=== PATIENT | female | born 1950 | race Two or more races ===

== ENCOUNTER → 2024-08-05 | Outpatient (CLI) | payer MEDICARE, MEDICAID, SELFPAY ==
--- NOTE | 2024-08-05 14:20 | XR_ITS ---
Examination: Bone densitometry Date and time of exam:August 05, 2024 1429 hours INDICATIONS: Menopause age 45, personal history osteopenia Technique: Lumbar spine and hip total bone mineralization values of an calculated. Peak reference and age match control results have been displayed. Findings: Lumbar spine total bone mineralization is0.889 gm/cm2. This is 1.4 standard deviations below peak reference. This is 0.9 standard deviations above age-matched controls. Hip total bone mineralization is 0.916 gm/cm2 This is 0.2 standard deviations below peak reference. This is 1.5 standard deviations above age-matched controls Impression: There is osteopenia based on lumbar spine measurements. There is normal mineralization based on hip measurements Lumbar mineralization is decreased 4.8% compared with March 07, 2015 Hip mineralization is decreased 3.4% compared with March 07, 2015
== END | disposition home or self-care (01) ==
PROVIDERS: Referring Provider Internal Medicine Pulmonary Disease; Visit Provider Internal Medicine Pulmonary Disease
DX: M85.80 Other specified disorders of bone density and structure, unspecified site (principal)
CPT/HCPCS: 77080

== ENCOUNTER → 2024-09-08 | Outpatient (CLI) | payer MEDICARE, MEDICAID, SELFPAY ==
--- NOTE | 2024-09-08 14:00 | XR_ITS ---
Examination: CT chest, without intravenous contrast. Sagittal and coronal 2-D reconstructions. Exam date and time: September 08, 2024 at 1442 hours Comparison March 10, 2020 INDICATIONS: Chronic coughing beginning 3 months ago CTDI:vol (mGy) 12 DLP: (mGycm) 378 Technique: Multiple 3.0 mm axial sections of the chest to been obtained. Bone and lung density settings are obtained. Sagittal and coronal 2-D reconstructions have been obtained. Low dose protocols were performed. One or more of the following dose reduction techniques were used; automated exposure control, adjustment of the mA and/or KV according to patient size, use of iterative reconstruction technique. Findings: Thoracic aortic calcification no aneurysmal dilatation Pulmonary artery segments are not enlarged Significant calcification left main left anterior descending coronary artery Mild enlargement cardiac contour 2 mm pulmonary nodule left upper lobe image 60 2 mm pulmonary nodule left lower lobe image 159 2 mm pulmonary nodule right upper lobe image 171 4 mm pulmonary nodule right upper lobe 2 mm pulmonary nodule right lower lobe, 2 mm pulmonary nodule left lower lobe image 188 2 mm pulmonary nodule left lower lobe image 204 No pneumonia or pulmonary edema Fatty infiltration throughout the liver Spleen not enlarged No pancreatic mass IMPRESSION: Multiple subcentimeter pulmonary nodules as above, with this study as baseline recommend 6 month follow-up CT chest without contrast No pneumonia or pulmonary edema
== END | disposition home or self-care (01) ==
PROVIDERS: Referring Provider Internal Medicine Pulmonary Disease; Visit Provider Internal Medicine Pulmonary Disease
DX: R05.3 Chronic cough (principal); R91.8 Other nonspecific abnormal finding of lung field
CPT/HCPCS: 71250

== ENCOUNTER → 2024-11-01 | Outpatient (CLI) | payer MEDICARE, MEDICAID, SELFPAY ==
--- NOTE | 2024-11-01 13:30 | XR_ITS ---
Examination: Breast ultrasound complete, bilateral Date and time of exam: November 01, 2024 1336 hours Comparison June 23, 2023 INDICATIONS: Right breast sonogram July 23, 2023 retroareolar oval mass 7 x 7 mm, suspicious mass Technique: Real-time grayscale ultrasonographic imaging bilateral breasts, including all 4 quadrants as well as nipple retroareolar and axillary regions. Findings: Sonographic images right breast 8:00 intramammary lymph node 10 x 6 mm Right axillary lymph node 15 x 13 mm Sonographic images left breast 3:00 intramammary lymph node 6 x 6 mm Axillary lymph node 15 by 8mm IMPRESSION: BI-RADS Category 2: Benign findings
--- NOTE | 2024-11-01 14:30 | XR_ITS ---
Examination: Diagnostic digital mammography, bilateral Computer aided detection 3-D breast Tomosynthesis, bilateral Date and time of exam: November 01, 2024 1407 hours Compared to mammograms dating to December 09, 2013 INDICATIONS: Spontaneous family history breast cancer, sister Technique: Nonmagnified MLO, CC views of the breasts to been obtained, reconstructed from 3-D Tomosynthesis images. R2 computer aided detection program utilized for evaluation of suspicious masses and/or abnormal calcifications. 3-D Tomosynthesis images obtained. Findings: Scattered areas of fibroglandular density Intramammary lymph nodes Benign calcifications No suspicious masses Impression: BI-RADS Category 2: Benign findings Recommend yearly follow-up mammography.
== END | disposition home or self-care (01) ==
LOC: CDIM 13:24
PROVIDERS: Referring Provider Specialist; Visit Provider Specialist
DX: R92.323 Mammographic fibroglandular density, bilateral breasts (principal); R92.1 Mammographic calcification found on diagnostic imaging of breast
CPT/HCPCS: 76641; 77062; 77066; G0279

== ENCOUNTER → 2024-12-06 | Outpatient (CLI) | payer MEDICARE, MEDICAID, SELFPAY ==
[2024-12-06 16:34] LABS: Creatinine (Component) 0.9 mg/dL (0.6-1.3); eGFR > 60 See Note
== END | disposition home or self-care (01) ==
PROVIDERS: PCP Internal Medicine Pulmonary Disease; Referring Provider Internal Medicine Pulmonary Disease; Visit Provider Internal Medicine Pulmonary Disease
DX: R10.9 Unspecified abdominal pain (principal)
CPT/HCPCS: 36415; 82565

== ENCOUNTER → 2025-07-13 | Outpatient (CLI) | payer MEDICARE, MEDICAID, SELFPAY ==
[2025-07-13 10:23] LABS: Basophils # (Auto) 0.0 Thou/mm3 (0.0-0.2); Basophils % (Auto) 0 % (0-2.5); Eosinophils # (Auto) 0.1 Thou/mm3 (0.0-0.5); Eosinophils % (Auto) 1 % (0-10); Hematocrit 34.0 % (36.0-46.0); Hemoglobin 10.6 g/dL (12.0-16.0); Immature Granulocytes Auto 0.03 Thou/mm3 (0.00-0.00); Lymphocytes # (Auto) 2.0 Thou/mm3 (1.0-4.8); Lymphocytes % (Auto) 34 % (10-50); Mean Corpuscular HGB Conc 31.2 g/dl (31.0-37.0); Mean Corpuscular Hemoglobin 24.0 pg (25.0-35.0); Mean Corpuscular Volume 77 fL (80-100); Monocytes # (Auto) 0.4 Thou/mm3 (0.0-0.8); Monocytes % (Auto) 7 % (0-12); Neutrophils # (Auto) 3.4 Thou/mm3 (1.8-7.7); Neutrophils % (Auto) 57 % (37-80); Nucleated Red Blood Cell # 0.00 Thou/mm3 (0.00-0.00); Nucleated Red Blood Cell % 0 /100 WBC (0); Platelet Count 246 Thou/mm3 (140-440); RDW Standard Deviation 41.1 fL (36.4-46.3); Red Blood Count 4.42 Miln/mm3 (4.00-5.20); White Blood Count 6.0 Thou/mm3 (3.6-11.0)
[2025-07-13 10:43] LABS: Glucose Estimated Average 100 mg/dL (80-131); Hemoglobin A1C 5.1 % Hgb (4.8-6.0)
[2025-07-13 12:21] LABS: Alanine Aminotransferase 18 U/L (10-49); Albumin, Serum 4.5 gm/dL (3.4-4.8); Albumin/Globulin Ratio 1.9 (1.2-2.2); Alkaline Phosphatase 52 U/L (46-116); Anion Gap 9 (7-16); Aspartate Amino Transferase 25 U/L (0-34); BUN/Creatinine Ratio 20 Ratio (12-20); Bilirubin,Total 0.5 mg/dL (0.3-1.2); Blood Urea Nitrogen 16 mg/dL (9-23); Calcium 9.4 mg/dL (8.3-10.6); Calcium (Corrected) 9.4 mg/dL (8.5-10.1); Carbon Dioxide 25.8 mMol/L (20.0-31.0); Cardiac Risk Estimate 2.5 RATIO (3.7-5.6); Chloride 110 mMol/L (98-107); Cholesterol 132 mg/dL (132-200); Creatinine (Component) 0.8 mg/dL (0.6-1.3); Globulin 2.4 gm/dL (2.3-3.5); Glucose 104 mg/dL (74-106); HDL Cholesterol 52 mg/dL (40-60); LDL Cholesterol,Calculated 64 mg/dL (0-130); Osmolality,Calculated 289 (275-295); Potassium 4.3 mMol/L (3.4-5.1); Sodium 145 mMol/L (136-145); Total Protein 6.9 gm/dL (5.7-8.2); Triglycerides 80 mg/dL (30-150); eGFR > 60 See Note
== END | disposition home or self-care (01) ==
LOC: COPL 09:17
PROVIDERS: PCP Internal Medicine Pulmonary Disease; Referring Provider Internal Medicine Pulmonary Disease; Visit Provider Internal Medicine Pulmonary Disease
DX: J42 Unspecified chronic bronchitis (principal); R05.3 Chronic cough; R05.8 Other specified cough
CPT/HCPCS: 36415; 80053; 80061; 83036; 85025